=== PATIENT | male | born 1995 | race Caucasian/White ===

== ENCOUNTER 2016-09-28 21:45 | Emergency (ER) | payer BC ==
[~2016-09-28] VITALS: Ht 180.3 cm; Wt 145.5 kg
[~2016-09-28 21:45] MED LIST: ASPIR-LOW81 MG PO; ATARAX,VISTARIL25 MG PO; KLONOPIN1 MG PO; NAPROSYN500 MG PO; PIROXICAM10 MG PO; PREDNISONE10 MG PO; TOPIRAMATE25 MG PO; VYVANSE50 MG PO
[2016-09-28 22:02] VITALS: BP 154/100
[2016-09-28 22:48] LABS: HEMATOCRIT 43.8 % (38.0-50.0); MCH 30.5 PG (29.0-34.0); MCHC 34.2 G/DL (30.0-36.0); MCV 89.2 FL (86-99); MEAN PLAT.VOLUME 11.2 uM^3 (9.0-12.4); PLATELET COUNT 227 K/uL (156-360); RBC DIS.WIDTH-CV 12.9 % (11.8-14.6); RBC DIS.WIDTH-SD 41.3 % (39-53); RED BLOOD COUNT 4.91 M/uL (4.00-5.50); WHITE BLOOD COUNT 9.9 K/uL (4.1-10.2)
[2016-09-28 22:56] LABS: CHLORIDE 105 mEq/L (99-109); POTASSIUM 3.8 mEq/L (3.7-5.4); SODIUM 141 mEq/L (136-147)
[2016-09-28 22:58] LABS: GLUCOSE 91 mg/dL (70-99)
[2016-09-28 23:00] LABS: ANION GAP 9 MEQ/L (2-14)
[2016-09-28 23:02] LABS: GFR ESTIMATE (CALCULATED) > 59 mL/min/
[2016-09-28 23:03] LABS: UREA NITROGEN (BUN) 15 mg/dL (9-23)
[2016-09-28 23:10] LABS: TROP-I INTERPRETATION NEGATIVE; TROPONIN-I < 0.01 ng/mL (0.0-0.30)
[2016-09-29] MEDS ORDERED: ATARAX,VISTARIL25 MG PO (01:37)
[2016-09-29] MEDS ORDERED: HYDROCHLOROTHIA25 MG PO (01:37)
== END 2016-09-29 01:52 | disposition home or self-care (01) ==
LOC: EME 21:45
DX: R00.2 Palpitations (principal); R51 Headache; I10 Essential (primary) hypertension; F41.1 Generalized anxiety disorder
CPT/HCPCS: 71020; 80048; 84484; 85027; 93005; 99281; 99284; Q0177

== ENCOUNTER 2016-10-22 23:37 | Emergency (ER) | payer BC ==
[~2016-10-22] VITALS: Ht 180.3 cm; Wt 141.7 kg
[~2016-10-22 23:37] MED LIST changes: +HYDROCHLOROTHIA25 MG PO
[2016-10-23 00:51] LABS: CHLORIDE 100 mEq/L (99-109); POTASSIUM 3.5 mEq/L (3.7-5.4); SODIUM 140 mEq/L (136-147)
[2016-10-23 00:52] LABS: GLUCOSE 139 mg/dL (70-99)
[2016-10-23 00:54] LABS: ANION GAP 10 MEQ/L (2-14)
[2016-10-23 00:56] LABS: GFR ESTIMATE (CALCULATED) > 59 mL/min/
[2016-10-23 00:57] LABS: D-DIMER ELISA 0.17 mg/L FEU (< 0.57); UREA NITROGEN (BUN) 15 mg/dL (9-23)
[2016-10-23 01:05] LABS: TROP-I INTERPRETATION NEGATIVE; TROPONIN-I 0.01 ng/mL (0.0-0.30)
[2016-10-23 01:06] LABS: HEMATOCRIT 47.3 % (38.0-50.0); MCHC 33.8 G/DL (30.0-36.0); MCV 88.6 FL (86-99); MEAN PLAT.VOLUME 11.6 uM^3 (9.0-12.4); PLATELET COUNT 254 K/uL (156-360); RBC DIS.WIDTH-CV 12.3 % (11.8-14.6); RBC DIS.WIDTH-SD 39.8 % (39-53); RED BLOOD COUNT 5.34 M/uL (4.00-5.50); WHITE BLOOD COUNT 10.6 K/uL (4.1-10.2)
[2016-10-23 03:21] LABS: TROP-I INTERPRETATION NEGATIVE; TROPONIN-I < 0.01 ng/mL (0.0-0.30)
[2016-10-23] MEDS ORDERED: ATARAX,VISTARIL50 MG PO (03:40)
[2016-10-23 03:45] VITALS: BP 134/86
== END 2016-10-23 03:50 | disposition home or self-care (01) ==
LOC: EME 23:37
PROVIDERS: Emergency Medicine
DX: R00.2 Palpitations (principal); I10 Essential (primary) hypertension
CPT/HCPCS: 71010; 80048; 84484; 85027; 85379; 93005; 99281; 99285; Q0177

== ENCOUNTER 2016-11-25 03:08 | Emergency (ER) | payer BC ==
[~2016-11-25] VITALS: Ht 180.3 cm; Wt 142.2 kg
[~2016-11-25 03:08] MED LIST changes: +ATARAX,VISTARIL50 MG PO
[2016-11-25] MEDS ORDERED: ULTRAM50 MG PO (04:46)
[2016-11-25] MEDS ORDERED: NAPROSYN500 MG PO (04:46)
[2016-11-25 05:11] VITALS: BP 136/87
== END 2016-11-25 05:13 | disposition home or self-care (01) ==
LOC: EME 03:08
DX: M25.561 Pain in right knee (principal)
CPT/HCPCS: 73564; 99281; 99283

== ENCOUNTER 2017-10-19 16:44 | Emergency (ER) | payer BC ==
[~2017-10-19] VITALS: Ht 182.9 cm; Wt 135.4 kg
[~2017-10-19 16:44] MED LIST changes: +ULTRAM50 MG PO
[2017-10-19 17:23] LABS: HEMATOCRIT 44.8 % (38.0-50.0); HEMOGLOBIN 15.6 G/DL (12.5-16.6); MCH 31.8 PG (29.0-34.0); MCHC 34.8 G/DL (30.0-36.0); MCV 91.4 FL (86-99); RBC DIS.WIDTH-CV 13.1 % (11.8-14.6); RBC DIS.WIDTH-SD 43.8 % (39-53); WHITE BLOOD COUNT 10.8 K/uL (4.1-10.2)
[2017-10-19 17:50] LABS: CHLORIDE 104 mEq/L (99-109); POTASSIUM 4.3 mEq/L (3.7-5.4); SODIUM 139 mEq/L (136-147)
[2017-10-19 17:52] LABS: GLUCOSE 92 mg/dL (70-99)
[2017-10-19 17:56] LABS: CREATININE 0.9 mg/dL (0.6-1.3); GFR ESTIMATE (CALCULATED) > 59 mL/min/ (58.99-99999); UREA NITROGEN (BUN) 13 mg/dL (9-23)
[2017-10-19 18:04] LABS: TROP-I INTERPRETATION NEGATIVE; TROPONIN-I < 0.01 ng/mL (0.0-0.30)
[2017-10-19 18:16] LABS: AMPHETAMINE NEGATIVE (500 ng/mL); BARBITURATES NEGATIVE (200 ng/mL); BENZODIAZEPINES NEGATIVE (150 ng/mL); BUPRENORPHINE NEGATIVE (10 ng/mL); COCAINE NEGATIVE (150 ng/mL); METHADONE NEGATIVE (200 ng/mL); METHAMPHETAMINE NEGATIVE (500 ng/mL); OPIATES (MORPHINE) NEGATIVE (100 ng/mL); OXYCODONE NEGATIVE (100 ng/mL); PHENCYCLIDINE NEGATIVE (25 ng/mL); PROPOXYPHENE NEGATIVE (300 ng/mL); THC CANNABINOIDS PRESUMPTIVE POSITIVE (50 ng/mL); TRICYCLIC ANTIDEPRESSANTS NEGATIVE (300 ng/mL)
[2017-10-19 18:18] LABS: PLAT.SUFFICIENCY ADEQUATE; PLATELET COUNT 202 K/uL (156-360)
[2017-10-19] MEDS ORDERED: ATARAX,VISTARIL50 MG PO (18:47)
[2017-10-19 19:01] VITALS: BP 127/74
== END 2017-10-19 19:02 | disposition home or self-care (01) ==
LOC: EME 16:44
PROVIDERS: Physician Assistant Medical
DX: R00.2 Palpitations (principal); F41.9 Anxiety disorder, unspecified; F12.90 Cannabis use, unspecified, uncomplicated; F32.9 Major depressive disorder, single episode, unspecified; I10 Essential (primary) hypertension; I48.91 Unspecified atrial fibrillation; F17.200 Nicotine dependence, unspecified, uncomplicated
CPT/HCPCS: 71046; 80048; 84484; 84999; 85027; 93005; 99281; 99284; Q0177

== ENCOUNTER 2018-01-04 00:30 | Emergency (ER) | payer BC, OTHER ==
[~2018-01-04] VITALS: Ht 180.3 cm; Wt 121.6 kg
[2018-01-04 01:09] LABS: ALBUMIN 4.6 g/dL (3.2-4.8); CHLORIDE 102 mEq/L (99-109); POTASSIUM 4.4 mEq/L (3.7-5.4); SODIUM 140 mEq/L (136-147)
[2018-01-04 01:11] LABS: GLUCOSE 88 mg/dL (70-99)
[2018-01-04 01:12] LABS: TOTAL PROTEIN 7.7 g/dL (6.4-8.3)
[2018-01-04 01:13] LABS: TOTAL BILIRUBIN 1.1 mg/dL (0.0-1.0)
[2018-01-04 01:15] LABS: ALKALINE PHOSPHATASE 67 IU/L (3-129); CREATININE 0.9 mg/dL (0.6-1.3); GFR ESTIMATE (CALCULATED) > 59 mL/min/ (58.99-99999)
[2018-01-04 01:16] LABS: UREA NITROGEN (BUN) 11 mg/dL (9-23)
[2018-01-04 01:17] LABS: AST (GOT) 26 IU/L (2-34)
[2018-01-04 01:18] LABS: ALT (GPT) 116 IU/L (3-49)
[2018-01-04 01:24] LABS: TROP-I INTERPRETATION NEGATIVE; TROPONIN-I 0.01 ng/mL (0.0-0.30)
[2018-01-04 01:54] LABS: HEMOGLOBIN 16.3 G/DL (12.5-16.6); MCHC 34.7 G/DL (30.0-36.0); MCV 89.5 FL (86-99); PLATELET COUNT 228 K/uL (156-360); RBC DIS.WIDTH-CV 12.5 % (11.8-14.6); RED BLOOD COUNT 5.25 M/uL (4.00-5.50); WHITE BLOOD COUNT 12.4 K/uL (4.1-10.2)
[2018-01-04 02:34] LABS: APPEARANCE CLEAR ((CLEAR)); BILIRUBIN NEGATIVE; BLOOD NEGATIVE; COLOR YELLOW ((YELLOW)); GLUCOSE (STRIP) NEGATIVE; KETONES 80; LEUKOCYTES NEGATIVE; NITRITE NEGATIVE; PROTEIN (STRIP) 30; SPECIFIC GRAVITY 1.012 (1.000-1.030); UCUL ADDED? NO; UROBILINOGEN 0.2 MG/DL (0.2-1.0)
[2018-01-04 02:42] LABS: AMPHETAMINE NEGATIVE (500 ng/mL); BARBITURATES NEGATIVE (200 ng/mL); BENZODIAZEPINES NEGATIVE (150 ng/mL); BUPRENORPHINE NEGATIVE (10 ng/mL); COCAINE NEGATIVE (150 ng/mL); METHADONE NEGATIVE (200 ng/mL); METHAMPHETAMINE NEGATIVE (500 ng/mL); OPIATES (MORPHINE) NEGATIVE (100 ng/mL); OXYCODONE NEGATIVE (100 ng/mL); PHENCYCLIDINE NEGATIVE (25 ng/mL); PROPOXYPHENE NEGATIVE (300 ng/mL); THC CANNABINOIDS NEGATIVE (50 ng/mL); TRICYCLIC ANTIDEPRESSANTS NEGATIVE (300 ng/mL)
[2018-01-04 03:38] VITALS: BP 139/77
== END 2018-01-04 03:39 | disposition home or self-care (01) ==
LOC: EME → EDBD 00:30 → EME 00:30
PROVIDERS: Emergency Medicine
DX: R55 Syncope and collapse (principal); I10 Essential (primary) hypertension; F32.9 Major depressive disorder, single episode, unspecified; F41.9 Anxiety disorder, unspecified; F17.200 Nicotine dependence, unspecified, uncomplicated
CPT/HCPCS: 71045; 80053; 81003; 84484; 85027; 85379; 93005; 99281; 99284; J7030

== ENCOUNTER 2018-03-03 06:51 | Emergency (ER) | payer BC ==
[~2018-03-03] VITALS: Ht 180.3 cm; Wt 122.0 kg
[2018-03-03 07:00] VITALS: BP 150/91
[2018-03-03] MEDS ORDERED: ATARAX,VISTARIL25 MG PO (07:42)
== END 2018-03-03 07:53 | disposition home or self-care (01) ==
LOC: EME 06:51
DX: S60.211A Contusion of right wrist, initial encounter (principal); W22.8XXA Striking against or struck by other objects, initial encounter; F41.9 Anxiety disorder, unspecified; R00.2 Palpitations; R00.1 Bradycardia, unspecified; Z87.891 Personal history of nicotine dependence
CPT/HCPCS: 93005; 99281; 99284